=== PATIENT | female | born 1970 | race Caucasian/White ===

== ENCOUNTER 2022-12-14 13:15 | Emergency (ER) | payer MEDICARE, OTHER ==
[~2022-12-14] VITALS: Ht 165.1 cm; Wt 73.5 kg
[~2022-12-14 13:15] MED LIST: ABILIFY5 MG PO; KLONOPIN0.5 MG PO; LEVAQUIN500 MG PO; LOMOTIL TABLET1 EACH PO; MOBIC7.5 MG PO; OXCARBAZEPINE300 MG PO; TIZANIDINE HCL4 MG PO; VESICARE5 MG PO
[2022-12-14] MEDS ORDERED: ANAPROX DS550 MG PO (13:37)
[2022-12-14] MEDS ORDERED: TETANUS/DIPHTHERIA TOX ADULT 0.5 ML SYR IM ONE (13:45)
== END 2022-12-14 13:54 | disposition home or self-care (01) ==
LOC: ER 13:23
DX: S80.12XA Contusion of left lower leg, initial encounter (principal); W20.8XXA Other cause of strike by thrown, projected or falling object, initial encounter; Y92.89 Other specified places as the place of occurrence of the external cause; F31.9 Bipolar disorder, unspecified
CPT/HCPCS: 90471; 90714; 99282